=== PATIENT | male | born 1990 | race Caucasian/White ===

== ENCOUNTER 2019-04-16 13:24 | Emergency (ER) | payer MEDICAID ==
[~2019-04-16] VITALS: Ht 182.9 cm; Wt 70.9 kg
[2019-04-16 13:35] VITALS: BP 135/95
[2019-04-16] MEDS ORDERED: NEOSPORIN OINT. PKT 1 PACKET ONE (13:52)
--- NOTE | 2019-04-16 13:55 | NUR ---
XRAY COMPLETED. TECH TO CLEAN AND DRESS WOUND
--- NOTE | 2019-04-16 14:35 | NUR ---
PROVIDED ROCKER SHOE FOR LEFT FOOT. PT AMBULATED TO DISCHARGE WINDOW STEADY GAIT
== END 2019-04-16 14:37 | disposition home or self-care (01) ==
LOC: ED 14:31
DX: S90.812A Abrasion, left foot, initial encounter (principal); X58.XXXA Exposure to other specified factors, initial encounter; Y93.89 Activity, other specified; Y92.89 Other specified places as the place of occurrence of the external cause; Y99.0 Civilian activity done for income or pay
CPT/HCPCS: 99283

== ENCOUNTER 2019-06-28 09:14 | Emergency (ER) | payer MEDICAID ==
[~2019-06-28] VITALS: Ht 180.3 cm; Wt 68.8 kg
[2019-06-28 09:17] VITALS: BP 126/87
== END 2019-06-28 10:01 | disposition home or self-care (01) ==
LOC: ED 09:55
DX: K02.9 Dental caries, unspecified (principal)
CPT/HCPCS: 99283

== ENCOUNTER 2020-03-24 20:38 | Emergency (ER) | payer MEDICAID ==
[~2020-03-24] VITALS: Ht 182.9 cm; Wt 64.1 kg
[2020-03-24] MEDS ORDERED: AZITHROMYCIN 500 MG TABLET PO ONE (21:30)
[2020-03-24] MEDS ORDERED: CEFTRIAXONE 250 MG IM ONE (21:30)
[2020-03-24] MEDS ORDERED: AZITHROMYCIN 500 MG TABLET ONE (22:47)
[2020-03-24] MEDS ORDERED: CEFTRIAXONE 250 MG ONE (22:47)
[2020-03-24] MEDS ORDERED: LIDOCAINE-MPF 1%, 5ML ONE (22:47)
--- NOTE | 2020-03-24 23:31 | NUR ---
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
[2020-03-24 23:58] VITALS: BP 124/66
== END 2020-03-25 00:02 | disposition home or self-care (01) ==
LOC: ED 23:20
DX: R30.0 Dysuria (principal); N34.2 Other urethritis; F17.210 Nicotine dependence, cigarettes, uncomplicated; Z72.9 Problem related to lifestyle, unspecified
CPT/HCPCS: 87491; 87591; 99283; 99406

== ENCOUNTER 2020-05-07 16:09 | Inpatient (IN) | payer MEDICAID ==
[~2020-05-07] VITALS: Ht 182.9 cm; Wt 66.3 kg
--- NOTE | 2020-05-07 16:17 | NUR ---
CALL X 1, NIL
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
[2020-05-07] MEDS ORDERED: HYDROmorphone 1 MG/ML, 1ML INJ ONE ×2 (16:49→21:06)
[2020-05-07] MEDS ORDERED: ONDANSETRON ODT 4 MG ONE (16:49)
[2020-05-07] MEDS ORDERED: ONDANSETRON ODT 4 MG PO ONE (17:00)
[2020-05-07] MEDS ORDERED: HYDROmorphone 1 MG/ML, 1ML INJ IM ONE (17:00)
[2020-05-07] MEDS ORDERED: CEFAZOLIN PMX 1GM/50ML 50 ML ONE (17:55)
[2020-05-07] MEDS ORDERED: SODIUM CHLORIDE FLUSH 10ML SYR IVF ONE (18:00)
[2020-05-07] MEDS ORDERED: CEFAZOLIN PMX 1GM/50ML 50 ML IV ONE (18:00)
--- NOTE | 2020-05-07 18:05 | NUR ---
PT RESTING IN [facility], MONITORING IN PLACE, PIV INSERTED, MEDICATED PER EMAR, PT PROVIDED LEMON MOUTH SWABS, NADN, WCTM.
[2020-05-07] MEDS ORDERED: MORPHINE SULFATE 4 MG/ML, 1ML ONE (19:16)
[2020-05-07] MEDS ORDERED: MORPHINE SULFATE 4 MG/ML, 1ML IVPush ONE (19:30)
--- NOTE | 2020-05-07 19:36 | NUR ---
PT RESTING IN [facility], PT MEDICATED PER EMAR FOR PAIN, MONITORING IN PLACE, NADN AT THIS TIME, WCTM.
--- NOTE | 2020-05-07 20:49 | NUR ---
PT AMBULATES TO RESTROOM STEADILY.
[2020-05-07] MEDS ORDERED: HYDROmorphone 1 MG/ML, 1ML INJ IV ONE (21:00)
[2020-05-07 23:19] VITALS: BP 117/76
[2020-05-07] MEDS ORDERED: CHLORHEXIDINE 15 ML UDC MM PRN (23:30)
[2020-05-07] MEDS: CEFAZOLIN PMX 1GM/50ML 50 ML IV SCH (23:58)
[2020-05-07] MEDS: MORPHINE SULFATE 4 MG/ML, 1ML IVPush PRN (23:58)
[2020-05-08 02:35] VITALS: BP 106/75
[2020-05-08] MEDS: MORPHINE SULFATE 4 MG/ML, 1ML IVPush PRN (06:09)
[2020-05-08] MEDS: CEFAZOLIN PMX 1GM/50ML 50 ML IV SCH ×2 (06:10→12:00)
[2020-05-08 08:00] VITALS: BP 112/72
[2020-05-08] MEDS ORDERED: EPINEPHRINE 1 MG/ML, 1ML ONE (08:36)
[2020-05-08] MEDS ORDERED: LIDOCAINE 1%, 20ML ONE (08:36)
[2020-05-08] MEDS ORDERED: BALANCED SALT OPHTH IRRIG SOLN 18ML ONE (08:36)
[2020-05-08] MEDS ORDERED: OXYMETAZOLINE NASAL SPRAY 0.05%,30ML ONE (08:36)
[2020-05-08] MEDS ORDERED: FENTANYL PF 250 MCG/5ML ONE ×2 (11:07→11:46)
[2020-05-08] MEDS ORDERED: MIDAZOLAM 1 MG/ML, 2ML ONE (11:07)
[2020-05-08] MEDS ORDERED: CEFAZOLIN 1,000 MG ONE (11:23)
[2020-05-08] MEDS ORDERED: DEXAMETHASONE 4 MG/ML, 5ML ONE (11:23)
[2020-05-08] MEDS ORDERED: SUCCINYLCHOLINE 20 MG/ML, 10ML ONE (11:23)
[2020-05-08] MEDS ORDERED: PROPOFOL 10 MG/ML, 20ML ONE (11:23)
[2020-05-08] MEDS ORDERED: ONDANSETRON 2MG/ML, 2ML ONE (11:23)
[2020-05-08] MEDS ORDERED: CHLORHEXIDINE 15 ML UDC ONE (11:37)
[2020-05-08] MEDS ORDERED: LIDOCAINE 1%-EPI 1:100K, 20ML INFIL ONE (12:00)
[2020-05-08] MEDS ORDERED: FENTANYL PF 100 MCG/2ML ONE ×3 (13:21→14:05)
[2020-05-08] MEDS ORDERED: PROMETHAZINE 25 MG/ML, 1ML IVPush PRN (13:30)
[2020-05-08] MEDS ORDERED: DIPHENHYDRAMINE 50 MG/ML, 1ML IVPush PRN ×2 (13:30)
[2020-05-08] MEDS ORDERED: ALBUTEROL SULFATE 2.5 MG/3 ML NPPB PRN (13:30)
[2020-05-08] MEDS ORDERED: LABETALOL 5MG/ML, 20ML IV PRN (13:30)
[2020-05-08] MEDS ORDERED: MEPERIDINE/PF 25MG/0.5ML IVPush PRN (13:30)
[2020-05-08] MEDS ORDERED: ACETAMINOPHEN 325 MG TABLET PO PRN (13:30)
[2020-05-08] MEDS ORDERED: OXYcodone 5 MG/5 ML ORAL.SOL UDC PO PRN (13:30)
[2020-05-08] MEDS ORDERED: MIDAZOLAM 1 MG/ML, 2ML IV PRN (13:30)
[2020-05-08] MEDS ORDERED: hydrALAzine 20 MG/ML, 1ML IV PRN (13:30)
[2020-05-08] MEDS ORDERED: EPHEDRINE 50 MG/ML, 1ML IVPush PRN (13:30)
[2020-05-08] MEDS ORDERED: ONDANSETRON 2MG/ML, 2ML IVPush PRN (13:30)
[2020-05-08] MEDS ORDERED: PROMETHAZINE 12.5 MG SUPP PR PRN (13:30)
[2020-05-08] MEDS ORDERED: OXYcodone 5 MG/5 ML ORAL.SOL UDC ONE (13:56)
[2020-05-08] MEDS: FENTANYL PF 100 MCG/2ML IV PRN ×4 (13:57→14:28)
[2020-05-08] MEDS ORDERED: HYDROmorphone 1 MG/ML, 1ML INJ ONE (14:05)
[2020-05-08] MEDS: HYDROmorphone 1 MG/ML, 1ML INJ IVPush PRN ×2 (14:09→14:24)
[2020-05-08] MEDS ORDERED: DIAZEPAM 5 MG/ML, 2ML ONE (14:12)
[2020-05-08] MEDS: DIAZEPAM 5 MG/ML, 2ML IVPush PRN ×2 (14:17→14:32)
[2020-05-08] MEDS ORDERED: MEPERIDINE/PF 25MG/ML,1ML ONE (14:33)
[2020-05-08] MEDS ORDERED: MORPHINE SULFATE 4 MG/ML, 1ML IV PRN (16:30)
[2020-05-08] MEDS: ACETAMINOPHEN 500 MG TABLET PO PRN ×2 (18:10→22:33)
[2020-05-08] MEDS: OXYcodone IR 5MG TABLET PO PRN ×2 (18:10→22:34)
[2020-05-08] MEDS: CEFAZOLIN PMX 2GM/50ML 50 ML IVPB SCH ×2 (18:15→23:48)
[2020-05-08 19:50] VITALS: BP 115/75
[2020-05-08] MEDS: CHLORHEXIDINE 15 ML UDC MM SCH (21:38)
[2020-05-08 22:54] VITALS: BP 96/66
[2020-05-09 03:49] VITALS: BP 87/55
[2020-05-09 04:38] VITALS: BP 97/60
[2020-05-09] MEDS: CEFAZOLIN PMX 2GM/50ML 50 ML IVPB SCH ×2 (06:01→12:57)
[2020-05-09] MEDS: OXYcodone IR 5MG TABLET PO PRN ×3 (06:02→13:14)
[2020-05-09] MEDS: ACETAMINOPHEN 500 MG TABLET PO PRN ×3 (06:02→13:14)
[2020-05-09 07:29] VITALS: BP 94/60
[2020-05-09] MEDS: CHLORHEXIDINE 15 ML UDC MM SCH (09:58)
[2020-05-09 13:33] VITALS: BP 105/65
[2020-05-09] MEDS ORDERED: AMOX1TAB64 PO (14:02)
[2020-05-09] MEDS ORDERED: NAPR-856 PO (14:04)
[2020-05-09] MEDS ORDERED: ACET-76 PO (14:07)
[2020-05-09] MEDS ORDERED: CHLO15MO MM (14:10)
== END 2020-05-09 15:03 | disposition home or self-care (01) | DRG 142 ==
LOC: ED 22:33 → EDIP 23:04 → 4NE 23:13 → DCLOUNGE 05-09 14:57
PROVIDERS: ADMIT Otolaryngology Facial Plastic Surgery; ATTEND Otolaryngology Facial Plastic Surgery
PROC: 0NST04Z Reposition Right Mandible with Internal Fixation Device, Open Approach (ICD-10-PCS; 2020-05-08)
PROC: 0NSV04Z Reposition Left Mandible with Internal Fixation Device, Open Approach (ICD-10-PCS; principal; 2020-05-08 12:15)
DX: S02.66XA Fracture of symphysis of mandible, initial encounter for closed fracture (principal); Y04.0XXA Assault by unarmed brawl or fight, initial encounter; Y93.01 Activity, walking, marching and hiking; F15.10 Other stimulant abuse, uncomplicated; F12.10 Cannabis abuse, uncomplicated; G89.11 Acute pain due to trauma; Z20.822 Contact with and (suspected) exposure to COVID-19; Y92.89 Other specified places as the place of occurrence of the external cause; Y99.8 Other external cause status
CPT/HCPCS: 70486; 87635; 96372; 96374; 96375; 99285; C1713; G0378; J0171; J0690; J1100; J1170; J2175; J2250; J2405; J2704; J3010; J3360; Q0162; J0330; J2270

== ENCOUNTER 2020-07-14 21:01 | Emergency (ER) | payer MEDICAID ==
[~2020-07-14] VITALS: Ht 182.9 cm; Wt 65.3 kg
[~2020-07-14 21:01] MED LIST: ACET-76 PO; AMOX1TAB64 PO; CHLO15MO MM; NAPR-856 PO
--- NOTE | 2020-07-14 21:28 | NUR ---
PT TO ROOM, IN NO ACUTE DISTRESS. PT HAS AN OCCASIONAL COUGH, AND PLACED ON O2 SAT MONITOR. MD TO BEDSIDE TO EVAL PT. BS INTACT, CLEAR AND GOOD AERATION AND GOOD OXYGENATION.
[2020-07-14] MEDS ORDERED: ONDANSETRON ODT 4 MG PO ONE (21:30)
[2020-07-14] MEDS ORDERED: ACETAMINOPHEN 500 MG TABLET PO ONE (21:30)
--- NOTE | 2020-07-14 22:30 | NUR ---
PT SWABBED FOR COVID AND FLU AND PT TOLERATED WELL. LAB SAMPLE WALKED TO LAB. PT RESTING COMFORTABLY IN ROOM, NO ACUTE DISTRESS, NO ACUTE RESPIRATORY DISTRESS AT THIS TIME.
[2020-07-14] MEDS ORDERED: ONDANSETRON ODT 4 MG ONE (22:37)
[2020-07-14] MEDS ORDERED: ACETAMINOPHEN 500 MG TABLET ONE (22:37)
[2020-07-14 23:03] VITALS: BP 132/78
[2020-07-14 23:08] LABS: RAPID INFLUENZA A Negative (Negative); RAPID INFLUENZA B Negative (Negative)
== END 2020-07-14 23:43 | disposition home or self-care (01) ==
LOC: ED 21:45
DX: B34.9 Viral infection, unspecified (principal); Z20.822 Contact with and (suspected) exposure to COVID-19; K52.9 Noninfective gastroenteritis and colitis, unspecified; J06.9 Acute upper respiratory infection, unspecified; R11.2 Nausea with vomiting, unspecified; R50.9 Fever, unspecified; R05 Cough; R06.02 Shortness of breath; F17.210 Nicotine dependence, cigarettes, uncomplicated
CPT/HCPCS: 71045; 87400; 93005; 99285; 99406; Q0162; U0003